=== PATIENT | female | born 1980 | race Caucasian/White ===

== ENCOUNTER 2016-11-02 13:03 | Emergency (ER) | payer BC ==
[~2016-11-02] VITALS: Ht 160 cm; Wt 97.7 kg
[~2016-11-02 13:03] MED LIST: IMIT50TA PO; NICO21DI5 TD; NO HOME MEDS
[2016-11-02] MEDS ORDERED: EFFE75CA75 PO (13:19)
[2016-11-02] MEDS ORDERED: LIPI10TA PO (13:19)
[2016-11-02] MEDS ORDERED: [UNRECOGNIZED DRUG - CODE] PO (13:19)
[2016-11-02] MEDS ORDERED: NS 1,000 ML IV SCH (13:35)
[2016-11-02] MEDS ORDERED: METOCLOPRAMIDE INJ 10MG/2ML VIAL (J2765) IV ONE (13:45)
[2016-11-02 13:48] LABS: BASO # 0.1 K/mm3 (0.0-0.2); BASO % 0.8 % (0.0-1.0); EOS # 0.2 K/mm3 (0.0-0.50); EOS % 2.2 % (0.0-3.0); LARGE UNSTAINED CELL # 0.1 K/mm3 (0.0-0.4); LARGE UNSTAINED CELL % 1.1 % (0.0-4.0); LYMPH # 2.7 K/mm3 (1.5-4.5); LYMPH % 24.4 % (24.0-44.0); MEAN CORPUSCULAR HEMOGLOBIN 30.6 pg (27.0-33.0); MEAN CORPUSCULAR HGB CONC 34.4 g/dl (32.0-36.5); MEAN CORPUSCULAR VOLUME 88.9 fl (80.0-96.0); MONO # 0.4 K/mm3 (0.0-0.8); MONO % 3.9 % (0.0-5.0); NEUTROPHILS # 7.2 K/mm3 (1.8-7.7); NEUTROPHILS % 67.6 % (36.0-66.0); PLATELET COUNT, AUTOMATED 299 k/mm3 (150-450); RED CELL DISTRIBUTION WIDTH 11.8 % (11.5-14.5); WHITE BLOOD COUNT 10.6 K/mm3 (4.0-10.0)
[2016-11-02 14:07] LABS: INR 1.01
[2016-11-02 14:09] LABS: ANION GAP 7 MEQ/L (8-16); BLOOD UREA NITROGEN 13 MG/DL (7-18); CALCIUM LEVEL 9.1 MG/DL (8.5-10.1); CARBON DIOXIDE LEVEL 26 MEQ/L (21-32); CHLORIDE LEVEL 108 MEQ/L (98-107); CREATININE FOR GFR 0.72 MG/DL (0.55-1.02); GLOMERULAR FILTRATION RATE > 60.0 (>60); GLUCOSE, FASTING 93 MG/DL (70-105); POTASSIUM SERUM 3.7 MEQ/L (3.5-5.1); SODIUM LEVEL 141 MEQ/L (136-145)
--- NOTE | 2016-11-02 14:18 | REP ---
Head CT without contrast: History: CVA. Comparison study: Comparison head CT study August 12, 2016. CT findings: Bone window settings demonstrate an intact bony calvarium. There is no evidence of skull fracture or incidental bony calvarial lesion. The visualized paranasal sinuses appear clear. No intraorbital abnormality is seen. On soft tissue window setting images; the lateral, third, and fourth ventricles are normal in size and position. Bolanos-white differentiation pattern is normal above and below the tentorium. There are is no evidence of intracranial hemorrhage. No mass, edema, infarction, or midline shift is seen. No extra-axial fluid collection is appreciated. Impression: Negative noncontrast head CT. Signed by Kingsley Messina MD 11/02/2016 02:10 P
[2016-11-02] MEDS ORDERED: ASPIRIN 325 MG TAB PO ONE (14:30)
[2016-11-02 15:05] VITALS: BP 106/55
--- NOTE | 2016-11-03 21:30 | ECGEPIP ---
Stationary ECG Study [facility] - ED Test Date: 2016-11-02 Pat Name: BRAEDEN FLOWERS Department: Room: - Gender: [employer] Advisor: carmel : 1980 Requested By: JU Palmer Order Number: [id number] Reading MD: Angela Iniguez Measurements Intervals Rogers Rate: 78 P: 58 KS: 125 QRS: 59 QRSD: 97 T: 28 QT: 381 QTc: 435 Interpretive Statements SINUS RHYTHM DECREASED RATE 03/20/14 Electronically Signed On 11-03-2016 21:29:41 EDT by Angela Iniguez
== END 2016-11-02 15:10 | disposition short-term general hospital (02) ==
LOC: EDBD 13:03 → M ED 13:03
DX: G81.91 Hemiplegia, unspecified affecting right dominant side (principal); R47.89 Other speech disturbances; H53.8 Other visual disturbances; R29.704 NIHSS score 4; Z86.73 Personal history of transient ischemic attack (TIA), and cerebral infarction without residual deficits; G43.809 Other migraine, not intractable, without status migrainosus; F17.210 Nicotine dependence, cigarettes, uncomplicated; Z88.5 Allergy status to narcotic agent; Z88.1 Allergy status to other antibiotic agents; Z91.040 Latex allergy status; Z79.899 Other long term (current) drug therapy
CPT/HCPCS: 70450; 80048; 82550; 82553; 85025; 85610; 85730; 86850; 86900; 86901; 93005; 93041; 94760; 96374; 99285; J2765

== ENCOUNTER → 2017-04-22 | Outpatient (REF) | payer BC ==
[2017-04-22 11:56] LABS: HEMATOCRIT 42.2 % (36.0-47.0); MEAN CORPUSCULAR HGB CONC 33.2 g/dl (32.0-36.5); MEAN CORPUSCULAR VOLUME 90.6 fl (80.0-96.0); PLATELET COUNT, AUTOMATED 296 10^3/uL (150-450); RED BLOOD COUNT 4.66 10^6/uL (4.00-5.40); RED CELL DISTRIBUTION WIDTH 11.9 % (11.5-14.5); WHITE BLOOD COUNT 9.5 10^3/uL (4.0-10.0)
[2017-04-22 12:13] LABS: ESTIMATED AVERAGE GLUCOSE 114 MG/DL (60-110); HEMOGLOBIN A1c 5.6 %
[2017-04-22 13:27] LABS: ALBUMIN 3.9 GM/DL (3.2-5.2); ALBUMIN/GLOBULIN RATIO 1.11 (1.00-1.93); ALKALINE PHOSPHATASE 92 U/L (45-117); ALT/SGPT 18 U/L (12-78); ANION GAP 11 MEQ/L (8-16); AST/SGOT 13 U/L (7-37); BILIRUBIN,TOTAL 0.3 MG/DL (0.2-1.0); BLOOD UREA NITROGEN 10 MG/DL (7-18); CALCIUM LEVEL 9.1 MG/DL (8.5-10.1); CARBON DIOXIDE LEVEL 24 MEQ/L (21-32); CHLORIDE LEVEL 105 MEQ/L (98-107); CHOLESTEROL LEVEL 203 MG/DL (<200); CREATININE FOR GFR 0.63 MG/DL (0.55-1.30); GLOMERULAR FILTRATION RATE > 60.0 (>60); GLUCOSE, FASTING 72 MG/DL (70-100); HDL CHOLESTEROL 35 MG/DL (>40); LDL CHOLESTEROL 148.2 MG/DL (<100); NON-HDL-C 168 MG/DL; POTASSIUM SERUM 4.5 MEQ/L (3.5-5.1); SODIUM LEVEL 140 MEQ/L (136-145); TOTAL PROTEIN 7.4 GM/DL (6.4-8.2); TRIGLYCERIDES LEVEL 99 MG/DL (<150)
== END ==
LOC: M SFHCPLAZ 10:02
DX: Z00.00 Encounter for general adult medical examination without abnormal findings (principal); Z83.3 Family history of diabetes mellitus; E78.00 Pure hypercholesterolemia, unspecified

== ENCOUNTER 2017-07-05 06:54 | Emergency (ER) | payer BC ==
[2017-07-05] MEDS: IPRATROPIUM 0.5MG/ALBUTEROL 2.5MG INH SOL UD 3ML (DUONEB)(J7620) NEB (07:12)
[2017-07-05] MEDS: methylPREDNISolone INJ 125 MG/2 ML VIAL (J2930) IV (07:21)
[2017-07-05] MEDS: diphenhydrAMINE INJ 50MG/ML VIAL (J1200) IV (07:21)
[2017-07-05] MEDS: FAMOTIDINE INJ 20MG/2ML VIAL (S0028) IV (07:21)
[2017-07-05] MEDS: NS 1,000 ML IV (07:21)
[2017-07-05 07:22] LABS: BASO # 0.1 10^3/uL (0.0-0.2); BASO % 0.9 % (0.0-1.0); EOS # 0.1 10^3/uL (0.0-0.50); EOS % 1.7 % (0.0-3.0); HEMATOCRIT 40.9 % (36.0-47.0); HEMOGLOBIN 14.2 g/dl (12.0-15.5); IMMATURE GRANULOCYTE % 0.4 % (0-3.0); LYMPH % 26.5 % (24.0-44.0); MEAN CORPUSCULAR HEMOGLOBIN 30.1 pg (27.0-33.0); MEAN CORPUSCULAR HGB CONC 34.7 g/dl (32.0-36.5); MEAN CORPUSCULAR VOLUME 86.8 fl (80.0-96.0); MONO # 0.5 10^3/uL (0.0-0.8); MONO % 6.1 % (0.0-5.0); NEUTROPHILS % 64.4 % (36.0-66.0); PLATELET COUNT, AUTOMATED 327 10^3/uL (150-450); RED BLOOD COUNT 4.71 10^6/uL (4.00-5.40); RED CELL DISTRIBUTION WIDTH 11.6 % (11.5-14.5); WHITE BLOOD COUNT 7.7 10^3/uL (4.0-10.0)
[2017-07-05 07:46] LABS: ALBUMIN 3.7 GM/DL (3.2-5.2); ALKALINE PHOSPHATASE 99 U/L (45-117); ALT/SGPT 19 U/L (12-78); ANION GAP 8 MEQ/L (8-16); AST/SGOT 10 U/L (7-37); BILIRUBIN,DIRECT 0.1 MG/DL (0.0-0.2); BILIRUBIN,TOTAL 0.5 MG/DL (0.2-1.0); BLOOD UREA NITROGEN 12 MG/DL (7-18); C REACTIVE PROTEIN QUANTITATIV 0.73 MG/DL (0.00-0.30); CALCIUM LEVEL 8.9 MG/DL (8.5-10.1); CARBON DIOXIDE LEVEL 22 MEQ/L (21-32); CHLORIDE LEVEL 109 MEQ/L (98-107); CREATININE FOR GFR 0.82 MG/DL (0.55-1.30); GLOMERULAR FILTRATION RATE > 60.0 (>60); GLUCOSE, FASTING 98 MG/DL (70-100); POTASSIUM SERUM 3.6 MEQ/L (3.5-5.1); SODIUM LEVEL 139 MEQ/L (136-145); TOTAL PROTEIN 7.4 GM/DL (6.4-8.2)
[2017-07-05 08:03] LABS: ERYTHROCYTE SEDIMENTATION RATE 22 mm/hr (0-20)
== END 2017-07-05 08:44 | disposition home or self-care (01) ==
LOC: M ED 06:54
DX: R21 Rash and other nonspecific skin eruption (principal); T78.40XA Allergy, unspecified, initial encounter; Z88.5 Allergy status to narcotic agent; Z88.1 Allergy status to other antibiotic agents; Z91.040 Latex allergy status; Z79.899 Other long term (current) drug therapy
CPT/HCPCS: J1200

== ENCOUNTER 2017-07-18 14:51 | Emergency (ER) | payer OTHER, BC ==
[2017-07-18] MEDS: NORCO, ANEXSIA 5/325MG TABLET (HYDROcodone/ACETAMINOPHEN) PO (15:23)
[2017-07-18] MEDS: METHOCARBAMOL 750 MG TAB PO (15:23)
== END 2017-07-18 16:37 | disposition home or self-care (01) ==
LOC: M ED 14:51
DX: S46.012A Strain of muscle(s) and tendon(s) of the rotator cuff of left shoulder, initial encounter (principal); X50.0XXA Overexertion from strenuous movement or load, initial encounter; Y92.89 Other specified places as the place of occurrence of the external cause; E78.5 Hyperlipidemia, unspecified; G43.909 Migraine, unspecified, not intractable, without status migrainosus; Z86.73 Personal history of transient ischemic attack (TIA), and cerebral infarction without residual deficits; F17.210 Nicotine dependence, cigarettes, uncomplicated; Z88.5 Allergy status to narcotic agent; Z88.8 Allergy status to other drugs, medicaments and biological substances; Z88.1 Allergy status to other antibiotic agents; Z91.040 Latex allergy status
CPT/HCPCS: 73030

== ENCOUNTER 2017-07-28 12:16 | Outpatient (RCR) | payer OTHER, BC | END 2017-08-14 | LOC: M PT 12:16 | DX: Z51.89 Encounter for other specified aftercare (principal); M25.542 Pain in joints of left hand ==

== ENCOUNTER 2017-09-09 08:12 | Outpatient (RCR) | payer OTHER | END 2017-09-13 | LOC: M PT 08:12 | DX: Z51.89 Encounter for other specified aftercare (principal); S43.402D Unspecified sprain of left shoulder joint, subsequent encounter ==

== ENCOUNTER 2017-09-16 08:11 | Outpatient (RCR) | payer OTHER | END 2017-10-14 | LOC: M PT 08:11 | DX: Z51.89 Encounter for other specified aftercare (principal); S43.402D Unspecified sprain of left shoulder joint, subsequent encounter ==

== ENCOUNTER 2017-11-10 13:49 | Emergency (ER) | payer BC, OTHER ==
[2017-11-10 14:12] LABS: BASO # 0.1 10^3/uL (0.0-0.2); BASO % 0.5 % (0.0-1.0); EOS # 0.1 10^3/uL (0.0-0.50); HEMATOCRIT 38.1 % (36.0-47.0); HEMOGLOBIN 13.3 g/dl (12.0-15.5); IMMATURE GRANULOCYTE % 0.5 % (0-3.0); LYMPH # 2.7 10^3/uL (1.5-4.5); LYMPH % 22.2 % (24.0-44.0); MEAN CORPUSCULAR HEMOGLOBIN 31.1 pg (27.0-33.0); MEAN CORPUSCULAR HGB CONC 34.9 g/dl (32.0-36.5); MEAN CORPUSCULAR VOLUME 89.2 fl (80.0-96.0); MONO # 0.5 10^3/uL (0.0-0.8); MONO % 4.2 % (0.0-5.0); NEUTROPHILS # 8.6 10^3/uL (1.8-7.7); NEUTROPHILS % 71.6 % (36.0-66.0); PLATELET COUNT, AUTOMATED 281 10^3/uL (150-450); RED BLOOD COUNT 4.27 10^6/uL (4.00-5.40); RED CELL DISTRIBUTION WIDTH 11.9 % (11.5-14.5)
[2017-11-10] MEDS: METOCLOPRAMIDE INJ 10MG/2ML VIAL (J2765) IV (14:24)
[2017-11-10] MEDS: NS 1,000 ML IV (14:24)
[2017-11-10] MEDS: diphenhydrAMINE INJ 50MG/ML VIAL (J1200) IV (14:24)
[2017-11-10 14:41] LABS: LACTIC ACID SEPSIS PROTOCOL 1.6 MMOL/L (0.4-2.0)
[2017-11-10 14:43] LABS: ALBUMIN 3.4 GM/DL (3.2-5.2); ALBUMIN/GLOBULIN RATIO 0.87 (1.00-1.93); ALKALINE PHOSPHATASE 87 U/L (45-117); ALT/SGPT 18 U/L (12-78); ANION GAP 9 MEQ/L (8-16); AST/SGOT 7 U/L (7-37); BILIRUBIN,DIRECT < 0.1 MG/DL (0.0-0.2); BILIRUBIN,TOTAL 0.2 MG/DL (0.2-1.0); BLOOD UREA NITROGEN 12 MG/DL (7-18); CALCIUM LEVEL 8.5 MG/DL (8.5-10.1); CARBON DIOXIDE LEVEL 23 MEQ/L (21-32); CHLORIDE LEVEL 109 MEQ/L (98-107); CPK CREATINE PHOSPHOKINASE 57 U/L (26-192); CREATININE FOR GFR 0.74 MG/DL (0.55-1.30); ETHYL ALCOHOL (ETHANOL) 0.003 % (0.000-0.010); GLOMERULAR FILTRATION RATE > 60.0 (>60); GLUCOSE, FASTING 140 MG/DL (70-100); POTASSIUM SERUM 3.2 MEQ/L (3.5-5.1); SALICYLATE LEVEL 2.9 MG/DL (5.0-30.0); SODIUM LEVEL 141 MEQ/L (136-145); TOTAL PROTEIN 7.3 GM/DL (6.4-8.2); TROPONIN I < 0.02 NG/ML (< 0.10)
[2017-11-10 14:48] LABS: CK-MB VALUE MASS < 1.0 NG/ML (<3.6); MB/CK RELATIVE INDEX 1.75 (< OR =4)
[2017-11-10 14:53] LABS: ACETAMINOPHEN LEVEL < 2.0 UG/ML (10.0-30.0)
[2017-11-10] MEDS: POTASSIUM CHLORIDE 10 MEQ SR TABLET PO (15:41)
== END 2017-11-10 17:04 | disposition home or self-care (01) ==
LOC: M ED 13:49
DX: G40.209 Localization-related (focal) (partial) symptomatic epilepsy and epileptic syndromes with complex partial seizures, not intractable, without status epilepticus (principal); G43.809 Other migraine, not intractable, without status migrainosus; Z86.73 Personal history of transient ischemic attack (TIA), and cerebral infarction without residual deficits; Z72.0 Tobacco use; Z88.5 Allergy status to narcotic agent; Z88.1 Allergy status to other antibiotic agents; Z88.8 Allergy status to other drugs, medicaments and biological substances; Z88.6 Allergy status to analgesic agent
CPT/HCPCS: J1200

== ENCOUNTER 2018-04-13 12:19 | Emergency (ER) | payer BC ==
[~2018-04-13] VITALS: Ht 160 cm; Wt 99.5 kg
[~2018-04-13 12:19] MED LIST changes: +BENA25CA4 PO; +EFFE75CA2 PO; +LIPI10TA PO; -NICO21DI5 TD; +NICO21DI6 TD; +NORCOTAB PO; +PEPC1TAB5 PO; +PRED20TA PO; +REGL10TA6 PO; +ROBA500T PO; +[UNRECOGNIZED DRUG - CODE] PO
[2018-04-13] MEDS ORDERED: ZOFR4TAB16 PO (12:26)
[2018-04-13] MEDS ORDERED: VERA120C PO (12:26)
[2018-04-13] MEDS ORDERED: diphenhydrAMINE INJ 50MG/ML VIAL (J1200) IV STA (14:05)
[2018-04-13] MEDS ORDERED: METOCLOPRAMIDE INJ 10MG/2ML VIAL (J2765) IV ONE (14:15)
[2018-04-13] MEDS ORDERED: NS 1,000 ML IV ONE (14:15)
[2018-04-13 14:57] LABS: BASO # 0.1 10^3/uL (0.0-0.2); BASO % 0.8 % (0.0-1.0); EOS # 0.1 10^3/uL (0.0-0.50); EOS % 0.9 % (0.0-3.0); HEMATOCRIT 40.9 % (36.0-47.0); HEMOGLOBIN 13.8 g/dl (12.0-15.5); LYMPH # 2.7 10^3/uL (1.5-4.5); LYMPH % 22.5 % (24.0-44.0); MEAN CORPUSCULAR HEMOGLOBIN 30.3 pg (27.0-33.0); MEAN CORPUSCULAR HGB CONC 33.7 g/dl (32.0-36.5); MEAN CORPUSCULAR VOLUME 89.9 fl (80.0-96.0); MONO # 0.6 10^3/uL (0.0-0.8); MONO % 4.8 % (0.0-5.0); NEUTROPHILS # 8.6 10^3/uL (1.8-7.7); NEUTROPHILS % 70.7 % (36.0-66.0); PLATELET COUNT, AUTOMATED 343 10^3/uL (150-450); RED BLOOD COUNT 4.55 10^6/uL (4.00-5.40); WHITE BLOOD COUNT 12.2 10^3/uL (4.0-10.0)
[2018-04-13 15:10] LABS: INR 1.01; PROTHROMBIN TIME 13.4 SECONDS (12.1-14.4)
[2018-04-13 15:11] LABS: PARTIAL THROMBOPLASTIN TIME 34.4 SECONDS (25.4-37.6)
[2018-04-13 15:14] LABS: BLOOD UREA NITROGEN 14 MG/DL (7-18); CALCIUM LEVEL 8.5 MG/DL (8.5-10.1); CARBON DIOXIDE LEVEL 26 MEQ/L (21-32); CHLORIDE LEVEL 107 MEQ/L (98-107); CK-MB VALUE MASS < 1.0 NG/ML (<3.6); CPK CREATINE PHOSPHOKINASE 55 U/L (26-192); CREATININE FOR GFR 0.64 MG/DL (0.55-1.30); GLOMERULAR FILTRATION RATE > 60.0 (>58); GLUCOSE, FASTING 85 MG/DL (70-100); MB/CK RELATIVE INDEX 1.82 (< OR =4); POTASSIUM SERUM 4.4 MEQ/L (3.5-5.1); SODIUM LEVEL 140 MEQ/L (136-145); TROPONIN I < 0.02 NG/ML (< 0.10)
[2018-04-13 15:35] LABS: HCG, SERUM QUALITATIVE NEGATIVE (NEGATIVE)
--- NOTE | 2018-04-13 16:35 | REP ---
MR angiography the brain without contrast: History: Right-sided weakness. Visual changes. Technique: 3-D [id number] MR angiography of the brain is acquired in the usual fashion and maximal intensity projection images were generated in rotational format about the vertical and horizontal axes. In addition, source axial T1-weighted images are viewed in cine mode. MR angiographic findings: The distal vertebral arteries are patent and co-dominant. Basilar artery is a little tortuous but widely patent. The posterior cerebral and superior cerebellar vessels are normal and symmetric. The distal internal carotid arteries are unremarkable. Anterior and middle cerebral arteries appear intact. There is no visible denney aneurysm or arteriovenous malformation. Impression: Unremarkable MR angiography the brain. Electronically Signed by Kingsley Messina MD 04/13/2018 04:28 P
--- NOTE | 2018-04-13 16:40 | REP ---
MRI brain without contrast: History: Right-sided weakness. Visual changes. Comparison study: July 28, 2013. Technique: Axial and sagittal imaging planes are utilized for T1 and T2-weighted scans. Sequences include spin-echo, fast spin echo, FLAIR, and diffusion weighted sequences. MRI findings: No bony calvarial lesion is seen. Craniocervical junction and upper cervical cord are normal in appearance. There is no MR evidence of significant paranasal sinus disease. No intraorbital abnormality is seen. The lateral, third, and fourth ventricles are normal in size and position. Bolanos-white differentiation pattern is intact above and below the tentorium. There is no evidence of intracranial hemorrhage. No mass, infarction, extra-axial fluid collection or midline shift is seen. No abnormal white matter lesion is seen. Impression: Negative noncontrast brain MRI study. Electronically Signed by Kingsley Messina MD 04/13/2018 04:32 P
--- NOTE | 2018-04-13 16:53 | REP ---
MR angiography carotids without contrast: History: Right-sided weakness. Vision changes. Findings: Common carotid arteries are unremarkable. Great vessel origins appear intact. Carotid bifurcations are clear. No significant irregularity or narrowing is seen on either side. Internal carotid arteries are normal and symmetric. Vertebral arteries are patent and symmetric. Impression: No abnormality noted. Electronically Signed by Kingsley Messina MD 04/13/2018 04:45 P
[2018-04-13] MEDS ORDERED: MAG SULF 1GM/100ML (MAG RUN) 1 GM in APPROPRIATE DILUENT 1 EA IV ONE (17:00)
[2018-04-13 18:00] VITALS: BP 118/61
== END 2018-04-13 18:48 | disposition home or self-care (01) ==
LOC: M ED 12:19
DX: G43.809 Other migraine, not intractable, without status migrainosus (principal); E78.5 Hyperlipidemia, unspecified; R56.9 Unspecified convulsions; Z86.73 Personal history of transient ischemic attack (TIA), and cerebral infarction without residual deficits
CPT/HCPCS: 36415; 70544; 70547; 70551; 80048; 82550; 82553; 84484; 84703; 85025; 85610; 85730; 93041; 94760; 99285; J1200; J2765; J3475

== ENCOUNTER 2019-05-17 08:19 | Inpatient (IN) | payer BC ==
[~2019-05-17] VITALS: Ht 160 cm; Wt 95.5 kg
[~2019-05-17 08:19] MED LIST changes: +HYDR-3715 PO; -NORCOTAB PO; +VERA120C PO; +ZOFR4TAB16 PO
[2019-05-17] MEDS ORDERED: DULO1CAP5 PO (08:33)
[2019-05-17] MEDS ORDERED: LORazepam 2 MG/ML VIAL (J2060) IV STA (08:42)
[2019-05-17] MEDS: DULoxetine 30 MG CAP (CYMBALTA) PO SCH ×2 (09:00→20:20)
[2019-05-17 09:14] LABS: HEMATOCRIT 39.8 % (36.0-47.0); HEMOGLOBIN 13.7 g/dl (12.0-15.5); MEAN CORPUSCULAR HEMOGLOBIN 30.9 pg (27.0-33.0); MEAN CORPUSCULAR HGB CONC 34.4 g/dl (32.0-36.5); MEAN CORPUSCULAR VOLUME 89.6 fl (80.0-96.0); PLATELET COUNT, AUTOMATED 302 10^3/uL (150-450); RED BLOOD COUNT 4.44 10^6/uL (4.00-5.40)
[2019-05-17 09:30] LABS: BLOOD UREA NITROGEN 13 MG/DL (7-18); CALCIUM LEVEL 8.5 MG/DL (8.5-10.1); CARBON DIOXIDE LEVEL 24 MEQ/L (21-32); CHLORIDE LEVEL 111 MEQ/L (98-107); CREATININE FOR GFR 0.75 MG/DL (0.55-1.30); GLOMERULAR FILTRATION RATE > 60.0 (>58); GLUCOSE, FASTING 96 MG/DL (70-100); MAGNESIUM LEVEL 2.2 MG/DL (1.8-2.4); POTASSIUM SERUM 3.8 MEQ/L (3.5-5.1); SODIUM LEVEL 140 MEQ/L (136-145)
[2019-05-17 09:33] LABS: HCG, SERUM QUALITATIVE NEGATIVE (NEGATIVE)
--- NOTE | 2019-05-17 10:13 | REP ---
Head CT without contrast: History: Seizure Comparison study: Comparison CT study November 10, 2017. CT findings: Bone window settings demonstrate an intact bony calvarium. There is no evidence of skull fracture or incidental bony calvarial lesion. The visualized paranasal sinuses appear clear. No intraorbital abnormality is seen. On soft tissue window setting images; the lateral, third, and fourth ventricles are normal in size and position. Bolanos-white differentiation pattern is normal above and below the tentorium. There are is no evidence of intracranial hemorrhage. No mass, edema, infarction, or midline shift is seen. No extra-axial fluid collection is appreciated. Impression: Negative noncontrast head CT. Electronically Signed by Kingsley Messina MD 05/17/2019 10:05 A
[2019-05-17] MEDS ORDERED: levETIRAcetam INJection 1,000 MG in D5W 100 ML IV ONE (11:30)
[2019-05-17] MEDS ORDERED: levETIRAcetam INJection 500 MG in D5W MINI-BAG PLUS 100 ML IV ONE ×2 (11:45→12:00)
[2019-05-17] MEDS ORDERED: ONDANSETRON 4MG/2ML VIAL (J2405) As Ordered ONE (12:03)
[2019-05-17] MEDS ORDERED: ONDANSETRON 4MG/2ML VIAL (J2405) IV ONE (12:15)
[2019-05-17] MEDS ORDERED: LORazepam 2 MG/ML VIAL (J2060) IV PRN (13:00)
[2019-05-17] MEDS ORDERED: KETOROLAC 30 MG/ML VIAL (J1885) IV PRN (13:15)
[2019-05-17] MEDS ORDERED: diphenhydrAMINE INJ 50MG/ML VIAL (J1200) IV PRN (13:15)
[2019-05-17] MEDS ORDERED: SUMAtriptan SUCCINATE 6 MG/0.5 ML VIAL SC PRN (13:15)
[2019-05-17] MEDS ORDERED: METOCLOPRAMIDE INJ 10MG/2ML VIAL (J2765) IV PRN (13:15)
[2019-05-17] MEDS ORDERED: MAG SULF 1GM/100ML (MAG RUN) 1 GM in IV 1 EA IV PRN ×2 (13:15→13:45)
[2019-05-17 13:30] LABS: PROLACTIN 5.4 NG/ML
--- NOTE | 2019-05-17 13:41 | HPEPDOC ---
General Date of Admission 05/17/19 Date of Service: May 17, 2019 Chief Complaint The patient is a 39-year-old female admitted with a reason for visit of Seizure. 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 Patient says she has not been sleeping or eating well the last week due to family issues this am she was on her way to work driven by her son in law Lux when her son in law noticed her left leg was grinding against the floor of the car and he asked if she was ok or if she was going to have a seizure. She felt OK. 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 She was told she had 2 seizures in the car. each for about 45 seconds. with thrashing back of her head and jerking of all 4 limbs of her body. the first one she does not remember any thing. During the second one she felt she was more aware as she could hear Lux telling her everything is going to be OK but describes that she was in a daze and could not respond. On arrival to the ED she was all gayla and jittery and tremulous though awake and alert. She was given a small dose of ativan which calmed her down. In the ED as per the ED physician she had a episode where her head was turned to the right and her right hand was having a jerking movement. She was not unconscious during this and could intermittently respond. Se was loaded with Keppra. At present patient feels her eyes are becoming sensitive to light and beginning of a throbbing headache. She feels like a migraine is coming on. She also complains of persistent numbness of her right upper and lower extremity and some weakness though they are improving. She was admitted for recurrent seizure. She follows with a neurologist in [place] but has not seen her in 6 months due to insurance issues. She says she would again be able to see her in July this year. Home Medications Scheduled Duloxetine Hcl (Duloxetine HCl) 30 Mg Capsule., 30 MG PO BID, (Reported) Allergies Coded Allergies: NSAIDS (Non-Steroidal Anti-Inflamma (Verified Allergy, Severe, Angioedema, 05/17/19) atorvastatin (Verified Allergy, Severe, Angioedema, 05/17/19) venlafaxine (Verified Allergy, Severe, Angioedema, 05/17/19) Latex, Natural Rubber (Verified Adverse Reaction, Intermediate, Hives, 05/17/19) erythromycin base (Verified Adverse Reaction, Intermediate, Elevated Liver Enzymes, 05/17/19) codeine (Verified Adverse Reaction, Mild, Vomitting, 05/17/19) tramadol (Verified Adverse Reaction, Mild, Vomiting, 05/17/19) Past Medical History Medical History Complex hemiplegic migraine Surgical History c- section, tubal ligation, fixation of left patella, Family History Significant Family History: Diabetes (father, mother), Heart disease (father), Other (epilepsy in second cousins) Social History * Smoker: current smoker Alcohol: Denies Drugs: denies A-FIB/CHADSVASC A-FIB History Current/History of A-Fib/PAF?: No Review of Systems Constitutional: Denies: Chills, Fever, Night Sweats ENT: Reports: Head Aches Skin: Denies: Rash, Lesions, Breakdown Pulmonary: Denies: Dyspnea, Cough Cardiovascular: Denies: Chest Pain, Palpitations, Orthopnea, Paroxysmal Noc. Dyspnea, Lt Headedness Gastrointestinal: Denies: Nausea, Vomiting, Abdominal Pain, Diarrhea Genitourinary: Denies: Dysuria, Frequency, Incontinence, Retention Hematologic: Denies: Bruising, Bleeding Excessively Musculoskeletal: Denies: Neck Pain, Back Pain, Joint Pain, Muscle Pain, Spasms Neurological: Reports: Weakness (on the right arm and leg), Numbness (on the tight ), Confusion (during first and second), Seizures (3 episodes) Psych: Reports: Mood Normal; Denies: Depression, Memory Issues Physical Examination General Exam: Positive: Alert, Cooperative, No Acute Distress Eye Exam: Positive: PERRLA, Conjunctiva & lids normal, EOMI; Negative: Sclera icteric ENT Exam: Positive: Atraumatic, Mucous membr. moist/pink, Pharynx Normal Neck Exam: Positive: Supple; Negative: JVD, thyromegaly Chest Exam: Positive: Clear to auscultation, Normal air movement Heart Exam: Positive: Rate Normal, Regular Rhythm, Normal S1, Normal S2; Negative: Murmurs, Rubs Abdomen Exam: Positive: Normal bowel sounds, Soft; Negative: Tenderness, Hepatospenomegaly Extremity Exam: Positive: Normal pulses; Negative: Clubbing, Cyanosis, Edema Skin Exam: Positive: Nl turgor and temperature; Negative: Breakdown, Lesion Neuro Exam: Positive: Normal Speech, Normal Tone, Cranial Nerves 3-12 NL Psych Exam: Positive: Anxiety, Memory Intact, Oriented x 3 Vital Signs Vital Signs Date Time Temp Pulse Resp B/P (MAP) Pulse Ox O2 Delivery O2 Flow Rate FiO2 05/17/19 08:21 97.2 105 18 123/66 (85) 97 Room Air Laboratory Data Labs 24H Laboratory Tests 2 05/17/19 08:54: Nucleated Red Blood Cells % (auto) 0.0, Anion Gap 5L, Glomerular Filtration Rate > 60.0, Calcium Level 8.5, Magnesium Level 2.2, Human Chorionic Gonadotropin, Qual NEGATIVE CBC/BMP Laboratory Tests 05/17/19 08:54 Assessment/Plan 39 year old female with h/o complex hemiplegic migraine presented to the ED after sustaining [address] to work this am. She was admitted for recurrent seizure. Recurrent Seizure/ seizure like activiy started on keppra continue cymbalta Complex migraine with right numbness and weakness. continue Cymbalta not on any meds at present ran out 2 months ago will make toradol, reglan, benadryl and magnesium available for acute migraine attack if she has one in the hospital. Plan / VTE VTE Prophylaxis Ordered?: Yes CHRISTINA ALMONTE MD May 17, 2019 13:41
[2019-05-17 14:00] VITALS: BP 107/86
[2019-05-17] MEDS: levETIRAcetam 250MG TABLET (KEPPRA) PO SCH (20:21)
[2019-05-17] MEDS ORDERED: ACETAMINOPHEN TAB 650MG DOSE (2X325MG) PO PRN (21:15)
[2019-05-17 22:00] VITALS: BP 104/57
[2019-05-17] MEDS ORDERED: ONDANSETRON 4 MG TAB (S0181) PO PRN (23:15)
[2019-05-18 06:00] VITALS: BP 106/53
[2019-05-18 07:16] LABS: BASO # 0.1 10^3/uL (0.0-0.2); EOS # 0.1 10^3/uL (0.0-0.5); EOS % 1.6 % (0.0-3.0); HEMATOCRIT 38.3 % (36.0-47.0); HEMOGLOBIN 12.9 g/dl (12.0-15.5); LYMPH # 2.3 10^3/uL (1.5-5.0); LYMPH % 34.2 % (24.0-44.0); MEAN CORPUSCULAR HEMOGLOBIN 30.4 pg (27.0-33.0); MEAN CORPUSCULAR HGB CONC 33.7 g/dl (32.0-36.5); MEAN CORPUSCULAR VOLUME 90.3 fl (80.0-96.0); MONO # 0.3 10^3/uL (0.0-0.8); MONO % 4.8 % (0.0-5.0); NEUTROPHILS % 58.3 % (36.0-66.0); PLATELET COUNT, AUTOMATED 290 10^3/uL (150-450); RED BLOOD COUNT 4.24 10^6/uL (4.00-5.40); WHITE BLOOD COUNT 6.8 10^3/uL (4.0-10.0)
[2019-05-18 07:38] LABS: BLOOD UREA NITROGEN 16 MG/DL (7-18); CALCIUM LEVEL 8.4 MG/DL (8.5-10.1); CARBON DIOXIDE LEVEL 24 MEQ/L (21-32); CHLORIDE LEVEL 111 MEQ/L (98-107); GLOMERULAR FILTRATION RATE > 60.0 (>58); GLUCOSE, FASTING 96 MG/DL (70-100); SODIUM LEVEL 140 MEQ/L (136-145)
[2019-05-18] MEDS: DULoxetine 30 MG CAP (CYMBALTA) PO SCH (10:08)
[2019-05-18] MEDS: levETIRAcetam 250MG TABLET (KEPPRA) PO SCH (10:09)
[2019-05-18] MEDS ORDERED: KEPP250T5 PO (11:33)
--- NOTE | 2019-05-18 14:10 | DS.PDOC ---
Discharge Summary General Date of Admission May 17, 2019 at 12:56 Date of Discharge 05/18/19 Discharge Summary PROCEDURES PERFORMED DURING STAY: [None]. DISCHARGE DIAGNOSES: Seizures Complicated Migraine COMPLICATIONS/CHIEF COMPLAINT: Seizure. HISTORY OF PRESENT ILLNESS: See history and physical HOSPITAL COURSE: 39 year old female with h/o complex hemiplegic migraine presented to the ED after sustaining [address] to work this am in the car driven by her son in law. She was admitted for recurrent seizures. She also had an episode of severe migraine attack along with weakness of right side of the body. Recurrent Seizure/ seizure like activity started on keppra continue cymbalta Complex migraine with right numbness and weakness. continue Cymbalta not on any meds at present ran out 2 months ago given reglan, benadryl and magnesium for acute migraine attack if she has one in the hospital. DISCHARGE MEDICATIONS: Please see below. ALLERGIES: Please see below. PHYSICAL EXAMINATION ON DISCHARGE: VITAL SIGNS: Please see below. General Exam: Positive: Alert, Cooperative, No Acute Distress Eye Exam: Positive: PERRLA, Conjunctiva & lids normal, EOMI; Negative: Sclera icteric ENT Exam: Positive: Atraumatic, Mucous membr. moist/pink, Pharynx Normal Neck Exam: Positive: Supple; Negative: JVD, thyromegaly Chest Exam: Positive: Clear to auscultation, Normal air movement Heart Exam: Positive: Rate Normal, Regular Rhythm, Normal S1, Normal S2; Negative: Murmurs, Rubs Abdomen Exam: Positive: Normal bowel sounds, Soft; Negative: Tenderness, Hepatospenomegaly Extremity Exam: Positive: Normal pulses; Negative: Clubbing, Cyanosis, Edema Skin Exam: Positive: Nl turgor and temperature; Negative: Breakdown, Lesion Neuro Exam: Positive: Normal Speech, Normal Tone, Cranial Nerves 3-12 NL Psych Exam: Positive: Anxiety, Memory Intact, Oriented x 3 LABORATORY DATA: Please see below. ACTIVITY: [As tolerated]. DIET: regular DISPOSITION: 01 Home, Self-Care. DISCHARGE INSTRUCTIONS: Follow up with PMD in 1 week FOllow up with ouw neurologist Dr Duron as per outpateint appointment. DISCHARGE CONDITION: [Stable]. TIME SPENT ON DISCHARGE: 35 minutes. Vital Signs/I&Os Vital Signs Date Time Temp Pulse Resp B/P (MAP) Pulse Ox O2 Delivery O2 Flow Rate FiO2 3/3/20 06:00 98.1 65 19 106/53 (70) 97 Room Air I&O- Last 24 Hours up to 6 AM 05/18/19 06:00 Intake Total 730 ml Output Total 101 ml Balance 629 ml Laboratory Data Labs 24H Laboratory Tests 2 05/18/19 06:38: Immature Granulocyte % (Auto) 0.1, Neutrophils (%) (Auto) 58.3, Lymphocytes (%) (Auto) 34.2, Monocytes (%) (Auto) 4.8, Eosinophils (%) (Auto) 1.6, Basophils (%) (Auto) 1.0, Neutrophils # (Auto) 4.0, Lymphocytes # (Auto) 2.3, Monocytes # (Auto) 0.3, Eosinophils # (Auto) 0.1, Basophils # (Auto) 0.1, Nucleated Red Blood Cells % (auto) 0.0, Anion Gap 5L, Glomerular Filtration Rate > 60.0, Calcium Level 8.4L CBC/BMP Laboratory Tests 05/18/19 06:38 Discharge Medications Scheduled Duloxetine Hcl (Duloxetine HCl) 30 Mg Capsule.dr, 30 MG PO BID, (Reported) Levetiracetam (Keppra) 250 Mg Tablet, 500 MG PO BID Allergies Coded Allergies: NSAIDS (Non-Steroidal Anti-Inflamma (Verified Allergy, Severe, Angioedema, 05/17/19) atorvastatin (Verified Allergy, Severe, Angioedema, 05/17/19) venlafaxine (Verified Allergy, Severe, Angioedema, 05/17/19) Latex, Natural Rubber (Verified Adverse Reaction, Intermediate, Hives, 05/17/19) erythromycin base (Verified Adverse Reaction, Intermediate, Elevated Liver Enzymes, 05/17/19) codeine (Verified Adverse Reaction, Mild, Vomitting, 05/17/19) tramadol (Verified Adverse Reaction, Mild, Vomiting, 05/17/19) CHRISTINA ALMONTE MD May 18, 2019 14:10
== END 2019-05-18 12:05 | disposition home or self-care (01) | DRG 53 ==
LOC: M ED 08:19 → EDBD 08:19 → M ED INP 12:56 → ENRESERVTM 13:37 → ENRESERVDT 13:37 → M MS5PR 14:35
PROVIDERS: ADMIT Internal Medicine Nephrology; ATTEND Internal Medicine Nephrology
DX: R56.9 Unspecified convulsions (principal); G43.409 Hemiplegic migraine, not intractable, without status migrainosus; F17.200 Nicotine dependence, unspecified, uncomplicated; R20.0 Anesthesia of skin; Z88.6 Allergy status to analgesic agent; Z88.5 Allergy status to narcotic agent; Z88.8 Allergy status to other drugs, medicaments and biological substances; Z88.1 Allergy status to other antibiotic agents; Z91.040 Latex allergy status; Z79.899 Other long term (current) drug therapy

== ENCOUNTER → 2020-03-27 | Outpatient (CLI) | payer BC ==
[~2020-03-27] MED LIST changes: +DULO1CAP5 PO; +KEPP250T5 PO
== END ==
LOC: M LABSMTC 13:33
PROVIDERS: ATTEND Family Medicine
DX: Z20.822 Contact with and (suspected) exposure to COVID-19 (principal)

== ENCOUNTER 2021-05-15 07:55 | Emergency (ER) | payer BC, SELFPAY ==
[~2021-05-15] VITALS: Ht 160 cm; Wt 97.3 kg
[2021-05-15] MEDS ORDERED: diphenhydrAMINE 50MG/ML VIAL (J1200) IV STA (08:21)
[2021-05-15] MEDS ORDERED: METOCLOPRAMIDE INJ 10MG/2ML VIAL (J2765 PER 1) IV ONE (08:25)
[2021-05-15 08:52] LABS: BASO # 0.1 10^3/uL (0.0-0.2); BASO % 0.9 % (0.0-1.0); EOS # 0.1 10^3/uL (0.0-0.5); EOS % 0.6 % (0.0-3.0); HEMATOCRIT 42.1 % (36.0-47.0); LYMPH # 2.2 10^3/uL (1.5-5.0); LYMPH % 16.8 % (24.0-44.0); MEAN CORPUSCULAR HEMOGLOBIN 30.4 pg (27.0-33.0); MEAN CORPUSCULAR HGB CONC 33.3 g/dl (32.0-36.5); MEAN CORPUSCULAR VOLUME 91.3 fl (80.0-96.0); MONO # 0.5 10^3/uL (0.0-0.8); NEUTROPHILS % 77.3 % (36.0-66.0); PLATELET COUNT, AUTOMATED 331 10^3/uL (150-450); RED BLOOD COUNT 4.61 10^6/uL (4.00-5.40); WHITE BLOOD COUNT 12.9 10^3/uL (4.0-10.0)
[2021-05-15 09:24] LABS: INR 0.95; PROTHROMBIN TIME 13.1 SECONDS (12.7-14.5)
[2021-05-15 09:25] LABS: PARTIAL THROMBOPLASTIN TIME 33.7 SECONDS (25.9-37.0)
[2021-05-15] MEDS ORDERED: ACETAMINOPHEN 500 MG TAB PO ONE (10:20)
[2021-05-15 10:35] VITALS: BP 111/59
[2021-05-15] MEDS ORDERED: predniSONE 50 MG TAB PO ONE (10:40)
[2021-05-15] MEDS ORDERED: predniSONE 20 MG TAB PO ONE (10:55)
[2021-05-15 11:14] VITALS: BP 106/64
[2021-05-15 11:15] LABS: RSV AMPLIFICATION NEGATIVE (NEGATIVE)
[2021-05-15 13:00] VITALS: BP 125/68
== END 2021-05-15 13:08 | disposition home or self-care (01) ==
LOC: M ED 07:55 → EDBD 07:55 → M ED 13:08
DX: G43.409 Hemiplegic migraine, not intractable, without status migrainosus (principal); R29.706 NIHSS score 6; E11.9 Type 2 diabetes mellitus without complications; E78.5 Hyperlipidemia, unspecified; Z86.73 Personal history of transient ischemic attack (TIA), and cerebral infarction without residual deficits; Z88.8 Allergy status to other drugs, medicaments and biological substances; Z88.5 Allergy status to narcotic agent; Z88.1 Allergy status to other antibiotic agents; Z91.040 Latex allergy status; Z88.6 Allergy status to analgesic agent; Z79.899 Other long term (current) drug therapy
CPT/HCPCS: 70450; 70551; 71045; 80047; 84484; 85025; 85610; 85730; 87631; 93005; 93041; 94760; 96374; 96375; 99285; J1200; J2765; J7512

== ENCOUNTER 2023-04-15 11:38 | Emergency (ER) | payer BC, SELFPAY ==
[~2023-04-15] VITALS: Ht 160 cm; Wt 101.1 kg
[2023-04-15] MEDS ORDERED: NS 1,000 ML IV ONE (11:50)
[2023-04-15] MEDS ORDERED: ACETAMINOPHEN 500 MG TAB PO ONE (12:05)
[2023-04-15] MEDS ORDERED: diphenhydrAMINE 50MG/ML VIAL IV ONE (12:05)
[2023-04-15] MEDS ORDERED: METOCLOPRAMIDE INJ 10MG/2ML VIAL IV ONE (12:05)
[2023-04-15 12:27] LABS: BASO # 0.1 10^3/uL (0.0-0.2); BASO % 0.9 % (0.0-1.0); EOS # 0.2 10^3/uL (0.0-0.5); EOS % 1.8 % (0.0-3.0); HEMATOCRIT 37.6 % (36.0-47.0); HEMOGLOBIN 12.7 g/dl (12.0-15.5); LYMPH # 2.8 10^3/uL (1.5-5.0); LYMPH % 29.4 % (24.0-44.0); MEAN CORPUSCULAR HEMOGLOBIN 31.2 pg (27.0-33.0); MEAN CORPUSCULAR HGB CONC 33.8 g/dl (32.0-36.5); MEAN CORPUSCULAR VOLUME 92.4 fl (80.0-96.0); MONO # 0.5 10^3/uL (0.0-0.8); NEUTROPHILS % 62.7 % (36.0-66.0); PLATELET COUNT, AUTOMATED 300 10^3/uL (150-450); RED BLOOD COUNT 4.07 10^6/uL (4.00-5.40); WHITE BLOOD COUNT 9.5 10^3/uL (4.0-10.0)
[2023-04-15 12:49] LABS: BLOOD UREA NITROGEN 11 MG/DL (9-23); CARBON DIOXIDE LEVEL 25 MMOL/L (20-31); CHLORIDE LEVEL 108 MMOL/L (98-107); GLOMERULAR FILTRATION RATE > 60.0 (>58); GLUCOSE, FASTING 107 MG/DL (60-100); MAGNESIUM LEVEL 1.9 MG/DL (1.8-2.4); SODIUM LEVEL 138 MMOL/L (136-145)
[2023-04-15 12:51] LABS: FREE T4 1.09 NG/DL (0.89-1.76); THYROID STIMULATING HORMONE 3.411 uIU/ML (0.55-4.78)
[2023-04-15 12:54] LABS: HCG, SERUM QUALITATIVE NEGATIVE (NEGATIVE)
[2023-04-15 12:57] LABS: RSV AMPLIFICATION NEGATIVE (NEGATIVE)
[2023-04-15 13:04] LABS: AMPHETAMINES LEVEL URINE NEGATIVE (NEGATIVE); BARBITURATES URINE NEGATIVE (NEGATIVE); BENZODIAZEPINES URINE NEGATIVE (NEGATIVE); CANNABINOIDS URINE NEGATIVE (NEGATIVE); COCAINE METABOLITE URINE NEGATIVE (NEGATIVE); METHADONE URINE NEGATIVE (NEGATIVE); OPIATES URINE NEGATIVE (NEGATIVE); PHENCYCLIDINE URINE NEGATIVE (NEGATIVE)
[2023-04-15 13:45] VITALS: BP 101/57; TEMP 97.7; O2SAT 97
== END 2023-04-15 13:51 | disposition home or self-care (01) ==
LOC: M ED 11:38 → EDBD 11:38 → M ED 13:51
DX: R55 Syncope and collapse (principal); G43.909 Migraine, unspecified, not intractable, without status migrainosus; F17.200 Nicotine dependence, unspecified, uncomplicated; Z88.6 Allergy status to analgesic agent; Z88.5 Allergy status to narcotic agent; Z88.8 Allergy status to other drugs, medicaments and biological substances; Z91.040 Latex allergy status
CPT/HCPCS: 70450; 80048; 80307; 83735; 84439; 84443; 84703; 85025; 87631; 93005; 93041; 94760; 96361; 96374; 96375; 99285; J1200; J2765

== ENCOUNTER 2023-10-03 14:51 | Emergency (ER) | payer BC ==
[2023-10-03] MEDS ORDERED: ISOVUE-370 76% 100ML VIAL As Ordered ONE (15:25)
[2023-10-03 16:00] LABS: BASO # 0.1 10^3/uL (0.0-0.2); EOS # 0.2 10^3/uL (0.0-0.5); EOS % 1.5 % (0.0-3.0); HEMOGLOBIN 13.9 g/dl (12.0-15.5); LYMPH # 3.5 10^3/uL (1.5-5.0); LYMPH % 31.9 % (24.0-44.0); MEAN CORPUSCULAR HEMOGLOBIN 30.5 pg (27.0-33.0); MEAN CORPUSCULAR HGB CONC 33.1 g/dl (32.0-36.5); MEAN CORPUSCULAR VOLUME 92.1 fl (80.0-96.0); MONO # 0.4 10^3/uL (0.0-0.8); NEUTROPHILS # 6.8 10^3/uL (1.5-8.5); NEUTROPHILS % 61.2 % (36.0-66.0); PLATELET COUNT, AUTOMATED 317 10^3/uL (150-450); RED BLOOD COUNT 4.56 10^6/uL (4.00-5.40)
[2023-10-03 16:22] LABS: INR 1.03; PARTIAL THROMBOPLASTIN TIME 29.4 SECONDS (24.8-34.2); PROTHROMBIN TIME 13.2 SECONDS (12.5-14.5)
[2023-10-03 16:24] LABS: BLOOD UREA NITROGEN 12 MG/DL (9-23); CALCIUM LEVEL 9.4 MG/DL (8.5-10.1); CARBON DIOXIDE LEVEL 23 MMOL/L (20-31); CHLORIDE LEVEL 107 MMOL/L (98-107); CREATININE FOR GFR 0.63 MG/DL (0.55-1.30); GLOMERULAR FILTRATION RATE > 60.0 (>58); GLUCOSE, FASTING 123 MG/DL (60-100); POTASSIUM SERUM 3.9 MMOL/L (3.5-5.1); SODIUM LEVEL 137 MMOL/L (136-145)
[2023-10-03 16:39] LABS: CPK CREATINE PHOSPHOKINASE 66 U/L (34-145)
[2023-10-03 16:57] LABS: CK-MB VALUE MASS < 1.0 NG/ML (<3.6); MB/CK RELATIVE INDEX 1.51 (< OR =4)
[2023-10-03 17:36] LABS: HCG, SERUM QUALITATIVE NEGATIVE (NEGATIVE)
[2023-10-03] MEDS ORDERED: KETOROLAC 30 MG/ML 1ML VIAL IV ONE (18:15)
[2023-10-03] MEDS: NS 1,000 ML IV ONE ×2 (18:15→18:59)
[2023-10-03] MEDS: ACETAMINOPHEN *IV* 1,000 MG in IV 1 EA IV ONE (18:20)
[2023-10-03] MEDS: METOCLOPRAMIDE INJ 10MG/2ML VIAL IV ONE (18:58)
[2023-10-03] MEDS: MAG SULF 1GM/100ML (MAG RUN) 1 GM in IV 1 EA IV ONE (18:58)
[2023-10-03 20:15] VITALS: BP 100/64; TEMP 98.2; O2SAT 98
== END 2023-10-03 20:20 | disposition home or self-care (01) ==
LOC: M ED 14:51
DX: G43.409 Hemiplegic migraine, not intractable, without status migrainosus (principal); Z88.1 Allergy status to other antibiotic agents; Z88.5 Allergy status to narcotic agent; Z88.8 Allergy status to other drugs, medicaments and biological substances; Z91.040 Latex allergy status
CPT/HCPCS: 70450; 70496; 70498; 70551; 71045; 80047; 80048; 82550; 82553; 84484; 84703; 85025; 85610; 85730; 93005; 93041; 94760; 96374; 99285; J1100; J2765; J3475; Q9967